=== PATIENT | male | born 1995 | race African-American/Black ===

== ENCOUNTER 2018-09-16 14:23 | Emergency (ER) | payer BC ==
[2018-09-16 14:51] VITALS: TEMP 97.9
[2018-09-16] MEDS ORDERED: LIDOCAINE/EPINEPHR/TETRACAINE 5 ML BOTTLE TOPICAL ONE (15:22)
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
[2018-09-16 17:27] VITALS: BP 111/62; PULSE 62; RESP 16
--- NOTE | 2018-09-19 05:56 | CDI ---
Documentation Clarification OP Dear Do ARZOLA, PAC, Please do the addendum for length of the laceration to code the procedure. Thank you, wesley Band Sawyer If you have any question, Please contact manager coding at [phone] mtdD
== END 2018-09-16 17:27 | disposition home or self-care (01) ==
LOC: EC 14:23
DX: S01.111A Laceration without foreign body of right eyelid and periocular area, initial encounter (principal); V28.4XXA Motorcycle driver injured in noncollision transport accident in traffic accident, initial encounter; Y93.55 Activity, bike riding; Y92.828 Other wilderness area as the place of occurrence of the external cause
CPT/HCPCS: 12011; 70450; 70486; 99283

== ENCOUNTER 2021-08-07 19:01 | Emergency (ER) | payer BC, OTHER ==
[2021-08-07 20:10] VITALS: BP 144/74; PULSE 68; RESP 18; TEMP 98.2
[2021-08-07] MEDS ORDERED: BACITRACIN OINT 1 EACH PACKET TOPICAL ONE (21:53)
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
== END 2021-08-07 22:09 | disposition home or self-care (01) ==
LOC: EC 19:01
DX: T24.422A Corrosion of unspecified degree of left knee, initial encounter (principal)
CPT/HCPCS: 99283